=== PATIENT | male | born 1975 | race African-American/Black ===

== ENCOUNTER 2020-09-23 19:20 | Emergency (ER) | payer OTHER ==
[~2020-09-23] VITALS: Ht 188 cm; Wt 113.4 kg
[2020-09-23 21:51] LABS: ABSOLUTE NEUTROPHILS 3.8 thou/uL (1.4-8.2); BASOPHILS 1.3 % (0.0-2.0); EOSINOPHILS 1.6 % (0.0-3.0); HEMATOCRIT 39.6 % (42.0-52.0); HEMOGLOBIN 13.4 gm/dL (14.0-18.0); LYMPHOCYTES 25.2 % (24.0-44.0); MCH 28.9 pg (26.0-34.0); MCV 85.2 fL (80.0-100.0); MONOCYTES 7.1 % (1.0-8.0); PLATELET COUNT 241 thou/uL (150-400); POLYS 64.8 % (36.0-66.0); RBC 4.65 mil/uL (4.50-6.00); RDW 13.4 % (10.5-14.5); WBC 5.9 thou/uL (4.0-11.0)
[2020-09-23 21:55] LABS: CALCIUM 8.9 mg/dL (8.5-10.1); CREATININE 1.1 mg/dL (0.7-1.3); POTASSIUM 4.1 mmol/L (3.5-5.1)
[2020-09-24 00:25] VITALS: BP 143/87
[2020-09-24 21:05] LABS: IgG 1407 mg/dL (603-1613); IgM 36 mg/dL (20-172)
== END 2020-09-24 00:26 | disposition left against medical advice (07) ==
LOC: ER 19:20
PROVIDERS: Emergency Medicine
DX: T78.3XXA Angioneurotic edema, initial encounter (principal); K11.1 Hypertrophy of salivary gland